=== PATIENT | male | born 1990 | race African-American/Black ===

== ENCOUNTER 2020-08-17 11:05 | Emergency (ER) | payer OTHER ==
[~2020-08-17] VITALS: Ht 180.3 cm; Wt 96.2 kg
[2020-08-17 11:16] VITALS: BP 159/98
[2020-08-17] MEDS ORDERED: DEXAMETHASONE 4 MG TABLET ONE (11:57)
[2020-08-17] MEDS: DEXAMETHASONE 1 MG TABLET PO ONE (12:02)
--- NOTE | 2020-08-17 12:21 | NUR ---
OSMAN NORIEGA [phone]
== END 2020-08-17 13:37 | disposition home or self-care (01) ==
LOC: ER 11:07
DX: M54.31 Sciatica, right side (principal); F10.10 Alcohol abuse, uncomplicated; F12.10 Cannabis abuse, uncomplicated; Y90.9 Presence of alcohol in blood, level not specified
CPT/HCPCS: 99283; J8540